=== PATIENT | female | born 1990 | race Caucasian/White ===

== ENCOUNTER 2021-01-11 11:42 | Emergency (ER) | payer OTHER ==
[~2021-01-11 11:42] MED LIST: BENTYL10 MG PO; KEFLEX500 MG PO; MOBIC7.5 MG PO; ZOFRAN4 MG PO
[2021-01-11 12:17] LABS: BASOPHIL 0.6 % (0-2); EOSINOPHIL 1.8 % (0-5); HCT 43.9 % (37.0-47.0); HGB 15.1 g/dl (12.5-16.0); LYMPHOCYTE 25.8 % (15-48); MCH 32.5 pg (25.0-31.0); MCHC 34.4 g/dL (32.0-36.0); MCV 94.4 fL (78.0-100.0); MONOCYTE 5.8 % (0-12); MPV 10.6 fL (6.0-9.5); NEUTROPHIL 65.9 % (41-80); NRBC 0; PLT 210 K/uL (150-400); RBC 4.65 M/uL (4.20-5.40); RDW 12.6 % (11.5-14.0); WBC 7.7 K/uL (4.0-10.5)
[2021-01-11 12:31] LABS: BILIRUBIN NEGATIVE (NEGATIVE); BLOOD NEGATIVE Ery/uL (NEGATIVE); CLARITY CLEAR (CLEAR); COLOR YELLOW (YELLOW); GLUCOSE (U) NORMAL (NORMAL); LEUKOCYTES NEGATIVE Leu/uL (NEGATIVE); NITRITE NEGATIVE (NEGATIVE); PROTEIN NEGATIVE (NEGATIVE); UROBILINOGEN 0.2 mg/dL (0.2-1.0)
[2021-01-11 12:34] LABS: ALBUMIN 3.6 g/dL (3.4-5.0); BILIRUBIN - TOTAL 0.3 mg/dL (0.2-1.0); BUN/CREAT RATIO (CALC) 10.3 RATIO; CREATININE 0.68 mg/dL (0.51-0.95); GLOBULIN (CALCULATION) 3.3 g/dL; POTASSIUM 4.3 mmol/L (3.5-5.1); TOTAL PROTEIN 6.9 g/dL (6.4-8.2)
[2021-01-11] MEDS ORDERED: MOTRIN600 MG PO (14:34)
== END 2021-01-11 14:54 | disposition home or self-care (01) ==
LOC: FER 11:42
PROVIDERS: Emergency Medicine
DX: N83.201 Unspecified ovarian cyst, right side (principal); F17.210 Nicotine dependence, cigarettes, uncomplicated; Z86.19 Personal history of other infectious and parasitic diseases
CPT/HCPCS: 36415; 76830; 80053; 81003; 82150; 83690; 85025; J1885; J7040

== ENCOUNTER 2021-02-02 15:37 | Emergency (ER) | payer OTHER ==
[~2021-02-02 15:37] MED LIST changes: +MOTRIN600 MG PO
[2021-02-02 16:48] LABS: BILIRUBIN NEGATIVE (NEGATIVE); BLOOD NEGATIVE Ery/uL (NEGATIVE); CLARITY CLEAR (CLEAR); COLOR YELLOW (YELLOW); GLUCOSE (U) NORMAL (NORMAL); LEUKOCYTES NEGATIVE Leu/uL (NEGATIVE); NITRITE NEGATIVE (NEGATIVE); PROTEIN NEGATIVE (NEGATIVE); UROBILINOGEN 0.2 mg/dL (0.2-1.0)
[2021-02-02] MEDS ORDERED: NORCO 5-325 TA1 EACH PO (17:31)
== END 2021-02-02 18:15 | disposition home or self-care (01) ==
LOC: FER 15:37
PROVIDERS: Emergency Medicine
DX: N83.201 Unspecified ovarian cyst, right side (principal); F17.210 Nicotine dependence, cigarettes, uncomplicated
CPT/HCPCS: 81003; 99284